=== PATIENT | female | born 1960 | race Two or more races ===

== ENCOUNTER 2017-04-03 04:53 | Emergency (ER) | payer OTHER ==
[2017-04-03 05:54] LABS: BASOPHIL % 1.5 % (0-2); PLATELET COUNT 266 x10^3mcL (130-400); RED CELL DISTRIBUTION WIDTH 13.9 % (11.5-14.5)
[2017-04-03 06:03] LABS: CALCIUM 8.7 mg/dL (8.5-10.1); CHLORIDE SERUM 106 mmol/L (98-107); CREATININE SERUM 0.8 mg/dL (0.6-1.0); GFR1 > 60 mL/min; GLUCOSE SERUM 115 mg/dL (74-106); POTASSIUM SERUM 3.5 mmol/L (3.5-5.1); SODIUM SERUM 142 mmol/L (136-145)
[2017-04-03 06:08] LABS: ALBUMIN 3.3 g/dL (3.4-5.0); ALKALINE PHOSPHATASE 142 U/L (46-116); ALT/SGPT 19 U/L (14-59); AST/SGOT 14 U/L (15-37); BILIRUBIN TOTAL 0.24 mg/dL (0.20-1.00); TOTAL PROTEIN, SERUM 7.4 g/dL (6.4-8.2)
[2017-04-03 06:16] LABS: CK-MB 0.9 ng/mL (0-3.6)
[2017-04-03 08:58] VITALS: BP 156/88
== END 2017-04-03 08:58 | disposition left against medical advice (07) ==
LOC: ED 04:53
PROVIDERS: Emergency Medicine
DX: R07.89 Other chest pain (principal); I10 Essential (primary) hypertension; K21.9 Gastro-esophageal reflux disease without esophagitis; G43.909 Migraine, unspecified, not intractable, without status migrainosus
CPT/HCPCS: 83880; J1885; Q0092